=== PATIENT | male | born 1995 | race Caucasian/White ===

== ENCOUNTER 2018-05-23 13:22 | Emergency (ER) | payer OTHER ==
[~2018-05-23] VITALS: Ht 172.7 cm; Wt 127.0 kg
[2018-05-23 13:30] VITALS: BP 142/70
--- NOTE | 2018-05-23 13:41 | NUR ---
PATIENT PRESENTS TO ED WITH C/O SOB AND EPIGASTRIC PAIN X LAST NIGHT ADMITS TO EATING LATE AND HAVING BEERS LAST NIGHT FULL CLEARS SPEECH, NO ACCESSORY MUSCLE USE NOTED---CLEAR BREATH SOUNDS TO ALL [place] . DENIES /V/D; SKIN IS PINK/WARM/DRY; AAOX4 WITH EVEN AND STEADY GAIT; LUNGS CLEAR BL; HR EVEN AND REGULAR; PT DENIES ANY FEVER, CP, OR COUGH AT THIS TIME; PATIENT STATES PAIN OF 2/10 AT THIS TIME; VSS; PATIENT POSITIONED FOR COMFORT; HOB ELEVATED; BEDRAILS UP X2; BED DOWN. ER MD MADE AWARE OF PT STATUS.
[2018-05-23] MEDS ORDERED: FAMOTIDINE 20 MG TAB PO ONE (13:55)
--- NOTE | 2018-05-23 14:05 | NUR ---
Called pharmacy to refill Pepsid.
--- NOTE | 2018-05-23 14:19 | NUR ---
XRAY AT BEDSIDE.
[2018-05-23 14:21] LABS: BASOPHILS % (AUTO) 0.4 % (0.0-2.0); EOSINOPHILS # (AUTO) 0.1 K/uL (0-0.4); EOSINOPHILS % (AUTO) 1.5 % (0.0-4.0); HEMATOCRIT 47.5 % (36-52); HEMOGLOBIN 15.6 g/dL (12.0-18.0); LYMPHOCYTES # (AUTO) 2.4 K/uL (2.0-11.5); LYMPHOCYTES % (AUTO) 28.2 % (20.5-51.1); MEAN CORPUSCULAR HEMOGLOBIN 29 pg (27-31); MEAN CORPUSCULAR HGB CONC 33 g/dL (33-37); MEAN CORPUSCULAR VOLUME 87.2 fL (80-94); MONOCYTES # (AUTO) 0.6 K/uL (0.8-1.0); MONOCYTES % (AUTO) 6.7 % (1.7-9.3); NEUTROPHILS # (AUTO) 5.4 K/uL (1.8-7.7); NEUTROPHILS % (AUTO) 63.2 % (42.2-75.2); PLATELET COUNT (AUTO) 326 K/uL (140-450); RED BLOOD CELL COUNT(AUTO) 5.45 MIL/uL (4.20-6.10); RED CELL DISTRIBUTION WIDTH 13.6 % (11.6-13.7); WHITE BLOOD COUNT (AUTO) 8.5 K/uL (4.8-10.8)
--- NOTE | 2018-05-23 14:38 | NUR ---
US AT BEDSIDE PERFORMING INTERVENTION.
[2018-05-23 14:46] LABS: ANION GAP 9.4 (8-16); CARBON DIOXIDE 29.8 mmol/L (21-32); POTASSIUM 4.2 mmol/L (3.5-5.1)
[2018-05-23 14:47] LABS: ALBUMIN 3.7 g/dL (3.4-5.0); TOTAL BILIRUBIN 0.4 mg/dL (0.0-1.0)
[2018-05-23 15:26] LABS: APPEARANCE,URINE CLEAR (CLEAR); BILIRUBIN,URINE NEGATIVE (NEGATIVE); BLOOD, URINE NEGATIVE (NEGATIVE); COLOR,URINE YELLOW (YELLOW); LEUKOCYTE ESTERASE ,URINE NEGATIVE (NEGATIVE); NITRITE, URINE NEGATIVE (NEGATIVE); UGLUCOSE NEGATIVE (NEGATIVE)
[2018-05-23 16:23] VITALS: BP 111/70
--- NOTE | 2018-05-23 16:23 | NUR ---
Patient discharged with v/s stable. Written and verbal after care instructions given and explained. Patient alert, oriented and verbalized understanding of instructions. Ambulatory with steady gait. All questions addressed prior to discharge. ID band removed. Patient advised to follow up with PMD. Rx of Omeprazole given. Patient educated on indication of medication including possible reaction and side effects. Opportunity to ask questions provided and answered.
== END 2018-05-23 16:23 | disposition home or self-care (01) ==
LOC: MED 13:22
DX: K21.9 Gastro-esophageal reflux disease without esophagitis (principal); R19.7 Diarrhea, unspecified; R06.02 Shortness of breath
CPT/HCPCS: 36415; 76705; 80053; 81003; 83690; 84484; 85025; 93005; 99284; Q0092

== ENCOUNTER 2018-07-25 14:21 | Emergency (ER) | payer OTHER ==
[~2018-07-25] VITALS: Ht 172.7 cm; Wt 125.4 kg
[2018-07-25 14:28] VITALS: BP 127/93
--- NOTE | 2018-07-25 14:59 | NUR ---
PT AMBULATES TO BED 8
--- NOTE | 2018-07-25 15:13 | NUR ---
23 YO M BIB FAMILY W/ C/O HEADACHE AND LEFT CHEEK TINGLING SINCE TUESDAY. REPORTS FEELING NAUSEAOUS ON TUESDAY, -V/D/FEVER. DENIES INJURY. BL EYE WATERING X TODAY. DENIES VISUAL CHANGES. AAOX4, PERRLA. NO MEDICATIONS TAKEN. HX DENIES RX DENIES
[2018-07-25] MEDS ORDERED: predniSONE 20 MG TAB PO ONE (15:45)
--- NOTE | 2018-07-25 16:19 | NUR ---
Patient discharged with v/s stable. Written and verbal after care instructions given and explained. Patient alert, oriented and verbalized understanding of instructions. Ambulatory with steady gait. All questions addressed prior to discharge. ID band removed. Patient advised to follow up with PMD. Rx of PREDNISON, LACRI LUBE, AND VALACYCLOVIR given. Patient educated on indication of medication including possible reaction and side effects. Opportunity to ask questions provided and answered.
[2018-07-25 16:21] VITALS: BP 132/87
== END 2018-07-25 16:19 | disposition home or self-care (01) ==
LOC: MED 14:21
DX: G52.8 Disorders of other specified cranial nerves (principal); G52.9 Cranial nerve disorder, unspecified
CPT/HCPCS: 99283; J7512

== ENCOUNTER 2019-02-26 19:10 | Emergency (ER) | payer OTHER ==
[~2019-02-26] VITALS: Ht 175.3 cm; Wt 119.7 kg
[2019-02-26 19:15] VITALS: BP 152/77
--- NOTE | 2019-02-26 19:18 | NUR ---
TO LOBBY A/W BED AMBULATORY
--- NOTE | 2019-02-26 19:25 | NUR ---
PATIENT AMBULATED TO ER BED 7
--- NOTE | 2019-02-26 19:25 | NUR ---
24Y MALE, PRESENTED TO ED C/O LIGHTHEADEDNESS/DIZZINESS X1WK. PT ALSO C/O PRESSURE ON TOP OF HEAD THAT RADIATES TO BACK OF HEAD THAT STARTED 3DAYS AGO WITH PAIN OF 3/10 ON/OFF. PT DENIES N/V/BLURRY VISION, -FEVER/CHILLS, PT AAOX4, RR EVEN UNLABORED, GCS 15, EDMD MADE AWARE, WILL CONTINUE TO MONITOR CLOSELY. BED LOCKED IN LOWEST POSITION, SIDE RAILS UPX1.
--- NOTE | 2019-02-26 19:53 | NUR ---
Dr. Moon examining patient.
[2019-02-26] MEDS ORDERED: MECLIZINE 25 MG TAB PO ONE ×2 (19:55→21:00)
[2019-02-26] MEDS ORDERED: KETOROLAC 30 MG/ML VIAL IVP ONE (19:55)
[2019-02-26] MEDS ORDERED: NACL 0.9% 1,000 ML IV ONE (19:55)
[2019-02-26 20:46] LABS: BASOPHILS # (AUTO) 0.1 K/uL (0.00-0.22); BASOPHILS % (AUTO) 0.7 % (0.0-2.0); EOSINOPHILS # (AUTO) 0.1 K/uL (0-0.4); EOSINOPHILS % (AUTO) 1.6 % (0.0-4.0); HEMATOCRIT 50.1 % (36-52); HEMOGLOBIN 17.1 g/dL (12.0-18.0); LYMPHOCYTES % (AUTO) 34.3 % (20.5-51.1); MEAN CORPUSCULAR HEMOGLOBIN 30 pg (27-31); MEAN CORPUSCULAR HGB CONC 34 g/dL (33-37); MEAN CORPUSCULAR VOLUME 87.9 fL (80-94); MONOCYTES # (AUTO) 0.6 K/uL (0.8-1.0); MONOCYTES % (AUTO) 6.8 % (1.7-9.3); NEUTROPHILS # (AUTO) 4.9 K/uL (1.8-7.7); NEUTROPHILS % (AUTO) 56.6 % (42.2-75.2); PLATELET COUNT (AUTO) 344 K/uL (140-450); RED CELL DISTRIBUTION WIDTH 13.6 % (11.6-13.7); WHITE BLOOD COUNT (AUTO) 8.6 K/uL (4.8-10.8)
[2019-02-26 21:01] LABS: ANION GAP 13.6 (8-16); CARBON DIOXIDE 27.2 mmol/L (21-32); POTASSIUM 3.8 mmol/L (3.5-5.1)
[2019-02-26 21:16] LABS: FREE T4 (FREE THYROXINE) 1.34 ng/dL (0.76-1.46); THYROID STIMULATING HORMONE 1.83 uIU/mL (0.34-3.74); TOTAL BILIRUBIN 0.3 mg/dL (0.0-1.0)
[2019-02-26 21:30] VITALS: BP 121/63
--- NOTE | 2019-02-26 21:30 | NUR ---
PT DISCHARGED WITH PAPERWORK. RX MECLIZINE HYDROCHLORIDE AND MOTRIN. EDUCATED PT REGARDING MEDICATIONS AND S/E. EDUCATED PT REGARDING D/C DIAGNOSIS AND INSTRUCTIONS. PT VERBALIZED UNDERSTANDING OF TEACHING. TOLD PT TO FOLLOW UP WITH PCP AND WHEN TO RETURN TO ED. PT VSS. PT DENIES ANY DIZZINESS. ALL QUESTIONS ANSWERED.
== END 2019-02-26 21:30 | disposition home or self-care (01) ==
LOC: MED 19:10
DX: R42 Dizziness and giddiness (principal); I10 Essential (primary) hypertension
CPT/HCPCS: 36415; 80053; 84439; 84443; 85025; 93005; 96361; 96374; 99284; J1885; J7030; J8597

== ENCOUNTER 2019-06-16 20:24 | Emergency (ER) | payer OTHER ==
[~2019-06-16] VITALS: Ht 172.7 cm; Wt 117.9 kg
[2019-06-16 20:35] VITALS: BP 135/79
--- NOTE | 2019-06-16 20:35 | NUR ---
to bed # 01 ambulatory
[2019-06-16] MEDS ORDERED: MECLIZINE 25 MG TAB PO ONE (21:30)
[2019-06-16] MEDS ORDERED: LORazepam 2 MG/ML VIAL IM ONE (21:30)
--- NOTE | 2019-06-16 21:30 | NUR ---
PATIENT ALERT AND ORIENTED, BREATHING EVEN AND UNLABORED, WILL CONTINUE TO MONITOR.
--- NOTE | 2019-06-16 21:30 | NUR ---
24 YEAR OLD MALE COMPLAINS OF DIZZINESS X2 MONTHS. PATIENT STATES THAT THE DIZZINESS HAS WORSENED TODAY WITH A HEADACHE. PATIENT DENIES NAUSEA, VOMITTING, DIARRHEA, AND CHESTPAIN. PATIENT ALERT AND ORIENTED, BREATHING EVEN AND UNLABORED, SKIN WARM AND DRY. BED IN LOWEST POSITION, LOCKED, BED RAIL UPX1. PMH - DENIES MEDICATIONS - NONE ALLERGIES - NKA
--- NOTE | 2019-06-16 22:10 | NUR ---
PATIENT ALERT AND AWAKE, BREATHING EVEN AND UNLABORED
[2019-06-16 22:22] VITALS: BP 130/79
--- NOTE | 2019-06-16 22:30 | NUR ---
Patient discharged with v/s stable. Written and verbal after care instructions ABOUT VERTIGO AND SEROUS OTITIS MEDIA given and explained. Patient alert, oriented and verbalized understanding of instructions. Ambulatory with steady gait. All questions addressed prior to discharge. ID band removed. Patient advised to follow up with PMD. Rx of BENADRYL AND MECLIZINE given. Patient educated on indication of medication including possible reaction and side effects. Opportunity to ask questions provided and answered.
== END 2019-06-16 22:22 | disposition home or self-care (01) ==
LOC: MED 20:24
DX: R42 Dizziness and giddiness (principal); H65.92 Unspecified nonsuppurative otitis media, left ear
CPT/HCPCS: 96372; 99283; J2060; J8597; Q0163

== ENCOUNTER 2019-10-28 11:07 | Emergency (ER) | payer OTHER ==
[~2019-10-28] VITALS: Ht 168.9 cm; Wt 115.2 kg
[2019-10-28 11:08] VITALS: BP 130/78
--- NOTE | 2019-10-28 11:14 | NUR ---
amb to bed 12 steady gait
--- NOTE | 2019-10-28 11:15 | NUR ---
denies n/v/d, fever. LBM yesterday, hard to pass. States constipation.pt awake ,alert, afibrile, ambulatory with steady gait, flat soft abdomen. Hx- denies
--- NOTE | 2019-10-28 11:22 | NUR ---
dr samuel at bedside evaluating pt.
[2019-10-28] MEDS ORDERED: LIDOCAINE VISCOUS 2% 20 ML UDC ONE (11:24)
[2019-10-28] MEDS ORDERED: DICYCLOMINE HCL LIQUID 10 MG/5 ML UDC ONE (11:24)
[2019-10-28] MEDS ORDERED: ALUMINUM HYD/MAG/SIMETHICONE 30 ML UDC ONE (11:24)
[2019-10-28] MEDS ORDERED: DICYCLOMINE HCL LIQUID 20 MG, ALUMINUM HYD/MAG/SIMETHICONE 30 ML, LIDOCAINE VISCOUS 2% ... PO ONE ×3 (11:25)
--- NOTE | 2019-10-28 11:48 | NUR ---
pt to xray via wheel chair
--- NOTE | 2019-10-28 11:52 | NUR ---
pt back from xray via wheelchair.pt awake ,alert in bed.
[2019-10-28 12:08] VITALS: BP 130/78
--- NOTE | 2019-10-28 12:09 | NUR ---
Patient discharged with v/s stable. Written and verbal after care instructions given and explained regarding constipation . Patient alert, oriented and verbalized understanding of instructions. Ambulatory with steady gait. All questions addressed prior to discharge. ID band removed. Patient advised to follow up with PMD. Rx of prilosec and miralax given. Patient educated on indication of medication including possible reaction and side effects. Opportunity to ask questions provided and answered.
== END 2019-10-28 12:09 | disposition home or self-care (01) ==
LOC: MED 11:07
DX: K29.70 Gastritis, unspecified, without bleeding (principal); K59.00 Constipation, unspecified
CPT/HCPCS: 74018; 99283

== ENCOUNTER 2020-08-09 17:29 | Emergency (ER) | payer OTHER ==
[~2020-08-09] VITALS: Ht 172.7 cm; Wt 117.9 kg
[2020-08-09 17:36] VITALS: BP 136/94
--- NOTE | 2020-08-09 17:37 | NUR ---
PT AMBULATED TO BATHROOM, STEADY GAIT.
--- NOTE | 2020-08-09 17:48 | NUR ---
25yo m c/o chest pain x 1 week. pain described as 10/10 squeezing and burning in nature, radiating to bilateral shoulders and back. patient takes Omeprazole for acid reflux but states that medication provided no relief at this time. pt also reports SOB accompanying chest pain C EXERTION. denies numbness, dizziness, headache OR NAUSEA. LUNGS CLEAR, DENIES COUGH. pmh: none nka
[2020-08-09] MEDS ORDERED: DICYCLOMINE HCL LIQUID 20 MG, ALUMINUM HYD/MAG/SIMETHICONE 30 ML, LIDOCAINE VISCOUS 2% ... PO ONE ×3 (18:05)
[2020-08-09] MEDS ORDERED: KETOROLAC 60 MG/2 ML VIAL IM ONE (18:05)
[2020-08-09] MEDS ORDERED: ALUMINUM HYD/MAG/SIMETHICONE 30 ML UDC ONE (18:17)
[2020-08-09] MEDS ORDERED: LIDOCAINE VISCOUS 2% 20 ML UDC ONE (18:17)
[2020-08-09] MEDS ORDERED: DICYCLOMINE HCL LIQUID 10 MG/5 ML UDC ONE (18:18)
--- NOTE | 2020-08-09 18:20 | NUR ---
Patient returned from x-ray.
--- NOTE | 2020-08-09 18:24 | NUR ---
DR. MARQUIS AT BEDSIDE
--- NOTE | 2020-08-09 18:54 | NUR ---
PT AMBULATED TO BATHROOM, STEADY GAIT.
--- NOTE | 2020-08-09 18:54 | NUR ---
NADR, PT DENIES PAIN AT THIS TIME.
--- NOTE | 2020-08-09 19:04 | NUR ---
Dr. Workman is evaluating the patient at bedside.
--- NOTE | 2020-08-09 19:13 | NUR ---
TRANSFER OF CARE AT THIS TIME TO [facility]AY[facility] HUBBARD
[2020-08-09 19:16] VITALS: BP 136/94
--- NOTE | 2020-08-09 19:16 | NUR ---
Patient discharged with v/s stable. Written and verbal after care instructions given and explained. Patient verbalized understanding. Ambulatory with steady gait. All questions addressed prior to discharge. Advised to follow up with PMD.
== END 2020-08-09 19:16 | disposition home or self-care (01) ==
LOC: MED 17:29
DX: K29.20 Alcoholic gastritis without bleeding (principal); K21.9 Gastro-esophageal reflux disease without esophagitis
CPT/HCPCS: 71046; 96372; 99283; J1885

== ENCOUNTER 2021-05-05 19:49 | Emergency (ER) | payer OTHER ==
[~2021-05-05] VITALS: Ht 172.7 cm; Wt 116.1 kg
[2021-05-05 20:14] VITALS: BP 140/76
--- NOTE | 2021-05-05 20:23 | NUR ---
PATIENT AMBULATORY TO THE BATHROOM FOR URINE COLLECTION AND WILL WAIT OUT INTO THE LOBBY
--- NOTE | 2021-05-05 21:52 | NUR ---
Dr. Riddle examining patient.
[2021-05-05 22:29] LABS: APPEARANCE,URINE CLEAR (CLEAR); BILIRUBIN,URINE NEGATIVE (NEGATIVE); BLOOD, URINE NEGATIVE (NEGATIVE); COLOR,URINE YELLOW (YELLOW); LEUKOCYTE ESTERASE ,URINE NEGATIVE (NEGATIVE); NITRITE, URINE NEGATIVE (NEGATIVE); UGLUCOSE NEGATIVE (NEGATIVE)
[2021-05-05] MEDS ORDERED: KETOROLAC 60 MG/2 ML VIAL IM ONE (22:40)
[2021-05-05] MEDS ORDERED: MUPI1OIN TP (22:42)
[2021-05-05] MEDS ORDERED: CEPH-588 PO (22:42)
[2021-05-05 23:35] VITALS: BP 142/82
--- NOTE | 2021-05-05 23:35 | NUR ---
Patient discharged with v/s stable. Written and verbal after care instructions given and explained. Patient alert, oriented and verbalized understanding of instructions. Ambulatory with steady gait. All questions addressed prior to discharge. ID band removed. Patient advised to follow up with PMD. Rx of KEFLEX, AND MUPIROCIN given. Patient educated on indication of medication including possible reaction and side effects. Opportunity to ask questions provided and answered.
== END 2021-05-05 23:35 | disposition home or self-care (01) ==
LOC: MED 19:49
DX: R10.30 Lower abdominal pain, unspecified (principal); F12.90 Cannabis use, unspecified, uncomplicated; Z79.899 Other long term (current) drug therapy
CPT/HCPCS: 81003; 87086; 96372; 99283; J1885

== ENCOUNTER 2023-03-12 19:16 | Emergency (ER) | payer OTHER ==
[~2023-03-12] VITALS: Ht 172.7 cm; Wt 108.9 kg
[~2023-03-12 19:16] MED LIST: CEPH-588 PO; MUPI1OIN TP
[2023-03-12 19:30] VITALS: BP 125/72; PULSE 69; RESP 17; TEMP 97.8; O2SAT 95
[2023-03-12 20:07] LABS: BILIRUBIN,URINE NEGATIVE (NEGATIVE); BLOOD, URINE 3+ (NEGATIVE); COLOR,URINE YELLOW (YELLOW); LEUKOCYTE ESTERASE ,URINE 2+ (NEGATIVE); NITRITE, URINE POSITIVE (NEGATIVE); PH,URINE 5.5 (5.0-9.0); PROTEIN,URINE NEGATIVE (NEGATIVE); UGLUCOSE NEGATIVE (NEGATIVE); UROBILINOGEN,URINE 0.2 EU/dL (0.2 - 1)
[2023-03-12 20:09] LABS: APPEARANCE,URINE CLOUDY (CLEAR)
[2023-03-12 20:30] LABS: BACTERIA,URINE 2+ /HPF (None Seen); RBC,URINE 20-50 /HPF (0-5); SQUAMOUS EPITHELIAL CELL,UR None Seen /LPF (0-3 (FEW)); WBC,URINE TOO MANY TO COUNT /HPF (0-5)
[2023-03-12] MEDS ORDERED: CEPH-588 PO (21:27)
[2023-03-12] MEDS ORDERED: cephALEXin 500 MG CAP PO ONE (21:30)
[2023-03-12] MEDS ORDERED: ACETAMINOPHEN EXTRA STRENGTH 500 MG TAB PO ONE (21:30)
[2023-03-12] MEDS ORDERED: KETOROLAC 30 MG/ML VIAL IM ONE (21:30)
[2023-03-12] MEDS ORDERED: KETOROLAC 15 MG/ML VIAL ONE (21:49)
[2023-03-12 22:25] VITALS: BP 125/72; PULSE 69; RESP 17; TEMP 97.8; O2SAT 95
== END 2023-03-12 22:25 | disposition home or self-care (01) ==
LOC: MED 19:16
DX: N39.0 Urinary tract infection, site not specified (principal); Z79.2 Long term (current) use of antibiotics
CPT/HCPCS: 81001; 87086; 96372; 99283; J1885